=== PATIENT | male | born 1950 | race Caucasian/White ===

== ENCOUNTER 2017-06-04 09:23 | Outpatient (CLI) | payer OTHER | END 2017-06-04 09:24 | disposition home or self-care (01) | LOC: DTY/OP 09:23 | PROVIDERS: ATTEND Specialist | DX: Z01.818 Encounter for other preprocedural examination (principal); E66.01 Morbid (severe) obesity due to excess calories | CPT/HCPCS: 97802 ==

== ENCOUNTER 2017-06-22 11:07 | Outpatient (CLI) | payer MEDICARE, OTHER | END 2017-06-22 11:08 | disposition home or self-care (01) | LOC: LABBT 11:07 | PROVIDERS: ATTEND Specialist | DX: Z01.818 Encounter for other preprocedural examination (principal); E66.01 Morbid (severe) obesity due to excess calories; Z68.41 Body mass index [BMI] 40.0-44.9, adult ==

== ENCOUNTER 2017-06-22 13:00 | Inpatient (IN) | payer MEDICARE, OTHER ==
[2017-06-22 11:54] VITALS: BMI 39.0
[2017-06-26] MEDS ORDERED: Heparin 5,000 UNITS/ML VIAL ONE (06:14)
[2017-06-26] MEDS ORDERED: Scopolamine 1.5 mg/72 hour Patch ONE (06:14)
[2017-06-26] MEDS ORDERED: Ketorolac Tromethamine 30 MG/ML VIAL ONE ×2 (06:14→12:34)
[2017-06-26] MEDS ORDERED: cefOXitin 2 GM, Syringe 1 ML in Sterile Water 10 ML SLOW IVP SCH (06:30)
[2017-06-26] MEDS ORDERED: Fentanyl 250 MCG/5 ML VIAL ONE ×2 (06:51→12:32)
[2017-06-26] MEDS ORDERED: Bupivacaine/Epinephrine 0.25% 30 ML VIAL ONE (06:55)
[2017-06-26] MEDS ORDERED: Nitroglycerin 2% Ointment 1 INCH/1 GM Packet ONE (09:11)
[2017-06-26] MEDS ORDERED: Ondansetron HCl/PF 4 MG/2 ML Vial IVP PRN ×2 (10:29→13:08)
[2017-06-26] MEDS ORDERED: Promethazine HCl 25 MG/ML VIAL IM PRN ×2 (10:29→13:08)
[2017-06-26] MEDS ORDERED: Promethazine HCl 25 MG/ML VIAL SLOW IVP PRN (10:29)
[2017-06-26] MEDS ORDERED: Dextrose 50% Abboject 50 ML SYRINGE SLOW IVP PRN (13:08)
[2017-06-26] MEDS ORDERED: Insulin Regular 300 UNITS/3 ML VIAL SC PRN (13:08)
[2017-06-26] MEDS ORDERED: hydrALAZINE 20 MG/ML VIAL SLOW IVP PRN (13:08)
[2017-06-26] MEDS ORDERED: diphenhydrAMINE 50 MG/ML VIAL IVP PRN (13:08)
[2017-06-26] MEDS ORDERED: Hydrocodone-Acetamin 15 ML UDCUP PO PRN (13:08)
[2017-06-26] MEDS ORDERED: Morphine 4 MG/ML VIAL SLOW IVP PRN ×2 (13:08)
[2017-06-26] MEDS ORDERED: Dextrose 5% in Water 1,000 ML IV PRN (13:08)
[2017-06-26] MEDS ORDERED: (Canagliflozin [Invokana] 300 MG) PO SCH (13:08)
[2017-06-26] MEDS ORDERED: INSULIN GLARGINE HUM REC ANLOG 20 UNIT SC SCH (13:08)
[2017-06-26] MEDS ORDERED: Insulin Detemir 100 UNITS/ML 20 UNITS in Pre-Filled Syringe SC SCH (13:30)
[2017-06-26] MEDS ORDERED: Bupropion 150 MG XL TAB PO SCH (13:30)
[2017-06-26] MEDS ORDERED: Finasteride 5 MG TAB PO SCH (13:30)
[2017-06-26] MEDS ORDERED: glipiZIDE 5 MG TAB PO SCH (13:30)
[2017-06-26] MEDS ORDERED: Pantoprazole 40 MG VIAL IVP SCH (13:30)
[2017-06-26] MEDS: 1/2 NS w/KCL 20 mEq 1,000 ML IV SCH ×2 (14:00→23:49)
[2017-06-26] MEDS ORDERED: Glycopyrrolate 0.2 MG/ML 5 ML SYRINGE ONE (14:34)
[2017-06-26] MEDS ORDERED: Ondansetron HCl/PF 4 MG/2 ML Vial ONE (14:34)
[2017-06-26] MEDS ORDERED: Lidocaine 1% PF 5 ML VIAL ONE (14:34)
[2017-06-26] MEDS ORDERED: ePHEDrine/0.9% NaCl/PF SYRINGE 50 mg/10 ml ONE (14:34)
[2017-06-26] MEDS ORDERED: Propofol 200 MG/20 ML VIAL ONE (14:34)
[2017-06-26] MEDS ORDERED: Dexamethasone 20 MG/5 ML VIAL ONE (14:34)
[2017-06-26] MEDS: Ketorolac Tromethamine 30 MG/ML VIAL IVP SCH ×2 (17:48→23:49)
[2017-06-26] MEDS: Bupropion 150 MG XL TAB PO SCH (20:30)
[2017-06-26] MEDS: glipiZIDE 5 MG TAB PO SCH (20:31)
[2017-06-26] MEDS ORDERED: Enoxaparin Sodium 40 MG/0.4 ML SYRINGE SC SCH (21:00)
[2017-06-26] MEDS ORDERED: Amlodipine 10 MG TAB PO SCH (21:00)
[2017-06-26] MEDS ORDERED: Simvastatin 40 MG TAB PO SCH (21:00)
[2017-06-27 05:32] LABS: #Lymphocytes 0.6 thou/uL (1.20-3.40); #Monocytes 0.8 thou/uL (0.11-0.59); #Neutrophils 10.6 thou/uL (1.40-6.50); %Basophils 0.1 % (0.0-1.0); %Eosinophils 0.2 % (0.0-10.0); %Lymphocytes 4.8 % (21.0-51.0); %Monocytes 6.9 % (0.0-10.0); %Neutrophils 88.1 % (42.0-75.0); Hemoglobin 16.1 g/dL (14.0-18.0); Mean Corpuscular Hemoglobin 30.4 pg (27.0-31.0); Mean Corpuscular Volume 94.8 fl (80.0-94.0); Mean Platelet Volume 8.1 fL (7.4-10.4); Platelet Count 125 thou/uL (130-400); RBC Distribution Width 14.3 % (11.5-14.5); White Blood Cell (WBC) Count 12.1 thou/uL (4.8-10.8)
[2017-06-27 05:39] LABS: Anion Gap 11 mmol/L (10-20); BUN (Urea Nitrogen) 25 mg/dL (8.4-25.7); Calc. Creatinine Clearance 93 mL/min (70-130); Calcium 8.8 mg/dL (7.8-10.44); Carbon Dioxide 27 mmol/L (23-31); Chloride 106 mmol/L (98-107); Estimated GFR-MDRD 46; Glucose 129 mg/dL (80-115); Potassium 4.5 mmol/L (3.5-5.1); Sodium 139 mmol/L (136-145)
[2017-06-27] MEDS: Ketorolac Tromethamine 30 MG/ML VIAL IVP SCH (05:39)
[2017-06-27] MEDS: 1/2 NS w/KCL 20 mEq 1,000 ML IV SCH (06:49)
[2017-06-27] MEDS ORDERED: HumaLOG 300 UNITS/3 ML VIAL SC SCH (07:30)
[2017-06-27] MEDS: Bupropion 150 MG XL TAB PO SCH (08:47)
[2017-06-27] MEDS: glipiZIDE 5 MG TAB PO SCH (08:47)
[2017-06-27] MEDS ORDERED: Finasteride 5 MG TAB PO SCH (09:00)
[2017-06-27] MEDS ORDERED: Pantoprazole 40 MG VIAL IVP SCH (09:00)
[2017-06-27] MEDS ORDERED: Insulin Detemir 100 UNITS/ML 20 UNITS in Pre-Filled Syringe SC SCH (09:00)
[2017-06-27 11:54] VITALS: BP 150/77; TEMP 97.7
--- NOTE | 2017-06-28 13:12 | OP ---
DATE OF PROCEDURE: 06/26/2017 PREOPERATIVE DIAGNOSIS: Morbid obesity with multiple comorbidities. POSTOPERATIVE DIAGNOSIS: Morbid obesity with multiple comorbidities. PROCEDURE PERFORMED: Laparoscopic vertical sleeve gastrectomy. SURGEON: Thaddeus Mann M.D. ANESTHESIA: General endotracheal. INDICATIONS: The patient is a 67-year-old morbidly obese white male with multiple obesity associated comorbidities. He has undergone preoperative education and evaluation and presents at this time for his surgery. OPERATIVE PROCEDURE IN DETAIL: Informed consent was obtained. The patient was taken to the operatin g room where general endotracheal anesthesia was obtained with the patient in supine position. Abdom en was clipped of hair, prepped with ChloraPrep, and draped in sterile fashion. Local anesthetic was infiltrated using 0.25% Marcaine with epinephrine and a 5 mm supraumbilical incision was created thr ough which a Veress needle was passed into the peritoneal cavity and pneumoperitoneum established usi ng carbon dioxide up to a pressure of 15 mmHg. A 5 mm trocar port was passed through this same incis ion. Laparoscopic camera was passed through this port. Under direct vision, 4 additional laparoscop ic ports were placed including bilateral subcostal 5 mm ports, a right paramedian 12 mm port, and a l eft paramedian 15 mm port. A 5 mm epigastric incision was created through which Nathansen retractor was passed into the abdominal cavity and used to retract the left lobe of the liver. The pylorus was identified. Beginning 5 cm proximal to the pylorus, the omental and vascular tissue was dissected a way from the greater curvature of the stomach in an ascending fashion using the LigaSure device. Hem ostasis was maintained. The short gastric vessels were divided in a similar fashion. Posterior delia lanie adhesions were divided as well. The angle of His was mobilized and the left cass of the diaphrag m was dissected as well. Once complete gastric mobilization was obtained, a 36 Vincentian bougie was pas sed by Anesthesia through the stomach down to the level of the pylorus. This was used as a guide for the subsequent gastrectomy. The gastrectomy was performed using several firings of the Nye stap ler, initially using a green load followed by a gold load and a series of blue loads to complete the resection. Great care was taken to avoid narrowing of the incisura or the gastroesophageal junction. Once the stomach was completely transected, the excised portion was removed through the 15 mm port site. The fascia was closed at that location using a [id number] suture of 0 Vicryl using a GraN ee needle. From above, an esophagogastroduodenoscopy was performed, passing the scope through the sto mach to the level of the pylorus. There was no evidence of intraluminal bleeding or stricture format ion. There was no air leak along the staple line as it was inspected under water. The intraluminal air was removed and the scope was removed as well. The staple line was inspected for hemostasis. Hemostasis obtained using electrocautery and/or Hemocl ips as necessary. All irrigant from within the abdomen was aspirated. The Nathansen retractor and a ll ports were removed under direct vision. Pneumoperitoneum was carefully evacuated. Quarter percen t Marcaine with epinephrine was infiltrated in each port site and skin edges approximated with 4-0 Mo nocryl subcuticular suture. Dermabond was placed externally. There were no complications. The milo ent tolerated the procedure well and was taken to recovery room in stable condition. FINDINGS: The patient still had significant evidence of fatty liver disease. There was, however amp le room to perform the surgery in a safe fashion. Anatomy was essentially within normal limits. The re were no complications and no significant blood loss. Patient tolerated the procedure well and was taken to recovery room in stable condition.
== END 2017-06-27 13:03 | disposition home or self-care (01) | DRG 621 ==
LOC: SURG A 06-26 05:48
PROVIDERS: ADMIT Specialist; ATTEND Specialist
PROC: 0DB64Z3 Excision of Stomach, Percutaneous Endoscopic Approach, Vertical (ICD-10-PCS; principal; 2017-06-26)
DX: E66.01 Morbid (severe) obesity due to excess calories (principal); K76.0 Fatty (change of) liver, not elsewhere classified; E11.9 Type 2 diabetes mellitus without complications; Z68.39 Body mass index [BMI] 39.0-39.9, adult; G47.33 Obstructive sleep apnea (adult) (pediatric); K21.9 Gastro-esophageal reflux disease without esophagitis; I10 Essential (primary) hypertension; E78.5 Hyperlipidemia, unspecified; Z88.5 Allergy status to narcotic agent; Z79.82 Long term (current) use of aspirin; Z79.4 Long term (current) use of insulin
CPT/HCPCS: 36415; 36416; 80048; 85025; 88307; 88312; A4216; C9113; J0131; J0171; J0694; J1100; J1644; J1650; J1815; J1885; J2001; J2405; J2704; J3010

== ENCOUNTER 2018-04-13 16:27 | Inpatient (IN) | payer MEDICARE, OTHER ==
--- NOTE | 2018-04-13 16:48 | RAD ---
CHEST ONE VIEW 04/13/18 HISTORY: Chest pain. COMPARISON: Radiograph from [address] from 07/18/16. FINDINGS: Lungs are clear. No pneumothorax or effusion. Cardiac silhouette and mediastinal contours are within normal limits. IMPRESSION: No acute intrathoracic abnormality. POS: [facility]
[2018-04-13 17:32] LABS: #Eosinphils 0.1 thou/uL (0.0-0.7); #Lymphocytes 0.7 thou/uL (1.20-3.40); #Monocytes 0.4 thou/uL (0.11-0.59); #Neutrophils 6.2 thou/uL (1.40-6.50); %Basophils 0.5 % (0.0-1.0); %Eosinophils 0.9 % (0.0-10.0); %Lymphocytes 9.6 % (21.0-51.0); %Monocytes 5.2 % (0.0-10.0); %Neutrophils 83.9 % (42.0-75.0); Hemoglobin 15.1 g/dL (14.0-18.0); Mean Corpuscular HGB CONC 34.2 g/dL (32.0-36.0); Mean Corpuscular Hemoglobin 32.6 pg (27.0-31.0); Mean Corpuscular Volume 95.3 fL (78.0-98.0); Mean Platelet Volume 8.6 fL (7.4-10.4); Platelet Count 131 thou/uL (130-400); RBC Distribution Width 11.8 % (11.5-14.5); Red Blood Cell (RBC) Count 4.64 mill/uL (4.70-6.10); White Blood Cell (WBC) Count 7.4 thou/uL (4.8-10.8)
[2018-04-13 17:55] LABS: ALT (SGPT) 28 U/L (8-55); AST (SGOT) 21 U/L (5-34); Albumin 4.4 g/dL (3.4-4.8); Alkaline Phosphatase 71 U/L (40-150); Anion Gap 14 mmol/L (10-20); BUN (Urea Nitrogen) 21 mg/dL (8.4-25.7); Bilirubin, Total 0.6 mg/dL (0.2-1.2); CK (CPK) 129 U/L (30-200); Calc. Creatinine Clearance 0 mL/min (70-130); Calcium 9.9 mg/dL (7.8-10.44); Carbon Dioxide 27 mmol/L (23-31); Chloride 105 mmol/L (98-107); Estimated GFR-MDRD 44; Globulin 2.7 g/dL (2.4-3.5); Glucose 185 mg/dL (80-115); Lipase 38 U/L (8-78); Potassium 4.4 mmol/L (3.5-5.1); Protein, Total 7.1 g/dL (5.8-8.1); Sodium 142 mmol/L (136-145)
[2018-04-13 18:15] LABS: CKMB 5.1 ng/mL (0-6.6)
[2018-04-13 20:48] LABS: Troponin I 0.643 ng/mL (< 0.028)
[2018-04-13] MEDS ORDERED: Aspirin 325 MG TAB ONE (21:21)
[2018-04-13] MEDS ORDERED: Nitroglycerin 2% Ointment 1 INCH/1 GM Packet ONE (21:26)
[2018-04-13] MEDS ORDERED: Enoxaparin Sodium 30 MG/0.3 ML SYRINGE ONE (22:33)
[2018-04-13] MEDS ORDERED: Enoxaparin Sodium 80 MG/0.8 ML SYRINGE ONE (22:33)
[2018-04-14 00:02] LABS: Troponin I 1.686 ng/mL (< 0.028)
[2018-04-14 00:26] VITALS: BMI 30.4
[2018-04-14] MEDS ORDERED: cloNIDine 0.1 MG TAB PO SCH (01:15)
[2018-04-14] MEDS ORDERED: Amlodipine 10 MG TAB PO SCH ×2 (01:15→21:00)
[2018-04-14] MEDS ORDERED: buPROPion 75 MG TAB PO SCH (01:15)
[2018-04-14] MEDS ORDERED: Famotidine 20 MG TAB PO SCH (01:15)
[2018-04-14] MEDS ORDERED: Atorvastatin Calcium 20 MG TAB PO SCH (01:15)
[2018-04-14] MEDS ORDERED: Acetaminophen 325 MG TAB PO PRN (02:58)
[2018-04-14] MEDS ORDERED: Prevnar 13-Val Conj/PF 0.5 ML SYRINGE IM ONE (09:00)
[2018-04-14] MEDS: Enoxaparin Sodium 120 MG/0.8 ML SYRINGE SC SCH ×2 (09:25→20:43)
[2018-04-14] MEDS: buPROPion 75 MG TAB PO SCH ×2 (09:27→20:42)
[2018-04-14 10:37] LABS: Troponin I 1.448 ng/mL (< 0.028)
[2018-04-14] MEDS ORDERED: Dextrose 50% Abboject 50 ML SYRINGE SLOW IVP PRN (11:48)
[2018-04-14] MEDS ORDERED: Insulin Regular 300 UNITS/3 ML VIAL SC PRN (11:48)
[2018-04-14] MEDS ORDERED: Dextrose 5% in Water 1,000 ML IV PRN (11:48)
--- NOTE | 2018-04-14 17:58 | HP ---
HISTORY OF PRESENT ILLNESS: This is a 67-year-old white male with a history of coronary artery disease, hypertension, status post gastric sleeve, who presents with chest pain. The patient did receive a cardiac catheterization on April 2015 and received 3 stents. On June 26, 2017, he underwent a gastric sleeve and since he has lost 80 pounds. He was doing well until yesterday on day of admission, and at approximately 2:00 p.m., he developed acute onset of epigastric pain radiating to the right shoulder blade. This occurred 20 minutes after eating pizza. Since then, his chest pain has resolved and he has been pain free. No history of nausea, vomiting, fever, or diaphoresis. This morning, he complains of being hungry and is pain free. In the ER, troponin levels were noted to be elevated. PAST MEDICAL HISTORY: Diabetes, hypertension, hyperlipidemia, kidney stones, and sleep apnea. PAST SURGICAL HISTORY: Include colonoscopy in 2011, cardiac cath with stent placement x3 in April 2015, and gastric sleeve on June 26, 2017. FAMILY HISTORY: Father with COPD. Mother with diabetes. Sibling with lung cancer. Maternal grandmother with some unknown cancer. Paternal uncle with diabetes. The patient does have 2 kids, 40 and 37. SOCIAL HISTORY: He is . He has 1 son, 1 daughter, 2 grand kids. He is retired from [employer] and is quite active. MEDICATIONS: 1. Metoprolol 50 daily. 2. Simvastatin 40 daily. 3. Zantac 300 at bedtime. 4. Vitamin D daily. 5. Testosterone every week. 6. Aspirin 81 daily. 7. Finasteride 5 daily. 8. Fish oil daily. 9. Metformin 500 daily. 10. Losartan, which is on hold. 11. Bupropion 150 p.o. b.i.d. REVIEW OF SYSTEMS: As above. ALLERGIES: CODEINE. PHYSICAL EXAMINATION: VITAL SIGNS: Temperature 97.5, pulse 43, respirations 20, pulse ox 99%, and blood pressure 153/75. GENERAL: No acute distress at this time. HEENT: Clear. NECK: Supple. HEART: Regular rate and rhythm. LUNGS: Clear. ABDOMEN: Soft, nontender. EXTREMITIES: No edema. LABORATORY DATA: White count 10.4, hemoglobin and hematocrit 15 and 44. Electrolytes are normal. Creatinine 1.58, blood sugar 185. Troponin-I 0.153, 0.643, 1.686, 1.448. Liver function tests are normal. ASSESSMENT: 1. Chest pain, rule out myocardial infarction. 2. Epigastric pain with radiation to the shoulder blade, rule out cholecystitis. 3. Status post gastric sleeve with an 80-pound weight loss on June 26, [address] Mann. PLAN: 1. Consult Dr. Wesley. 2. Abdominal ultrasound, rule out cholecystitis. 3. N.p.o. for now. If the ultrasound comes back positive, we will consult Dr. Mann. I doubt this is cardiac, however, it is possible. He does have a history of 3 stents placed recently. Job ID: [id number]
[2018-04-14] MEDS: Atorvastatin Calcium 20 MG TAB PO SCH (20:42)
[2018-04-14] MEDS: Famotidine 20 MG TAB PO SCH (20:43)
--- NOTE | 2018-04-15 00:44 | CON ---
DATE OF CONSULTATION: 04/14/2018 TYPE OF CONSULTATION: Cardiology. INDICATION FOR CONSULTATION: A 67-year-old patient with a history of coronary artery disease, status post angioplasty and stent placement to the left anterior descending artery. He presented with chest pain with unstable angina-type symptoms. When he arrived to the emergency room, he was given nitroglycerin and had relief of his pain. He has had no pain since that time. He did have abnormal cardiac enzymes. The first troponin was 0.153 and increased up to 1.68 and is back down to 1.448. He has had no further chest pain since he has been in the hospital. His EKG was unremarkable. MB was 5.1. In April of 2015, he underwent angioplasty and stent placement with drug-eluting stents to the left anterior descending artery with a 2.75 x 24 mm and 2.75 x 12 mm and 2.5 x 16 mm, all to the left anterior descending artery, which was a small vessel. Ejection fraction at that time was 60%. He also had some luminal irregularities of the right coronary artery. He had a codominant system of the right coronary and left circumflex and he had a 70% stenosis in the posterior descending artery. In the interim, he has undergone a gastric sleeve procedure, and lost about 80 pounds and feels much better. He has been active, but then started developing chest pain yesterday when he was getting ready to start a project. The pain started in the chest, was heavy, pressure radiating to the back and with diaphoresis lasted for about 3 hours in total until he received the nitroglycerin in the emergency room. PAST MEDICAL HISTORY: Significant for: 1. Type 2 diabetes. 2. Hypertension. 3. Dyslipidemia. 4. History of nephrolithiasis. 5. History of coronary artery disease. 6. Angioplasty and stent placement. 7. Lithotripsy. 8. He has had a colonoscopy. MEDICATIONS PRIOR TO ADMISSION: Included: 1. Simvastatin. 2. Testosterone. 3. Losartan/hydrochlorothiazide. 4. Aspirin 81 mg a day. 5. Finasteride 5 mg a day. 6. Zantac. 7. Amlodipine 10 mg a day. 8. Wellbutrin. 9. Metoprolol 50 mg a day. 10. Calcium carbonate antacid. 11. Also he was taking econazole nitrate. Prior to that, he had been on medicines for his diabetes, but since he has lost weight, he no longer required the medications for the diabetes. SOCIAL HISTORY: He lives with his . He continues to work. No significant alcohol or tobacco abuse. ALLERGIES: HE IS ALLERGIC TO CODEINE, WHICH CAUSES HALLUCINATIONS. FAMILY HISTORY: Unremarkable for any early heart disease. He did have one brother who had lung cancer and he also had a history of COPD in the family with his father. REVIEW OF SYSTEMS: A 12-point review of systems is unremarkable except what is noted in the history of present illness. PHYSICAL EXAMINATION: GENERAL: Reveals a very pleasant, well-developed, well-nourished gentleman, who is in no acute distress. He is alert and oriented x3. VITAL SIGNS: Blood pressure is 153/74, then increased up to 176/84, heart rates in the 40s and shows sinus bradycardia. He is afebrile. Respiratory rate is 20, O2 saturation 99%. HEENT: Shows the head to be normocephalic and atraumatic. Carotid pulses are present. There were no bruits. There is no JVD. The thyroid was not enlarged. Oral mucosa was pink and moist. CHEST: Clear to auscultation without rales, rhonchi, or wheezing. CARDIOVASCULAR: At this time reveals a regular rhythm. Bradycardic, but no significant murmurs, heaves, thrills, bruits, or rubs. ABDOMEN: Soft and nontender. Positive bowel sounds are present. EXTREMITIES: Showed no clubbing or cyanosis. Pedal pulses are present. NEUROLOGIC: The patient appears to be fully intact. SKIN: His skin is warm and dry. LABORATORY DATA: Noted for the troponin as noted above. His hemoglobin is 15.1, WBC is 7.4, creatinine is 1.58 with a BUN of 21, blood sugar was 185. IMPRESSION AND PLAN: 1. [id number] elevation myocardial infarction. The patient with known coronary artery disease. He would best be served by undergoing a repeat cardiac catheterization. We will arrange for this for tomorrow morning for Dr. Diaz to proceed with cardiac catheterization at his convenience. 2. History of diabetes. He had not been taking any medications after losing the weight, but I did notice that his blood sugars were somewhat elevated, I will leave this up to the discretion of the primary care physician. 3. History of hyperlipidemia. He will continue his present medications or his statins. 4. Hypertension. Blood pressure is somewhat elevated today. However, he says at home, his blood pressures have been under good control. We will be more than happy to continue to follow the patient with you and Dr. Diaz will resume his care tomorrow. Job ID: [id number]
[2018-04-15] MEDS: Enoxaparin Sodium 120 MG/0.8 ML SYRINGE SC SCH (07:40)
[2018-04-15 08:02] LABS: Anion Gap 13 mmol/L (10-20); BUN (Urea Nitrogen) 17 mg/dL (8.4-25.7); Calc. Creatinine Clearance 91 mL/min (70-130); Carbon Dioxide 24 mmol/L (23-31); Chloride 107 mmol/L (98-107); Estimated GFR-MDRD 60; Glucose 105 mg/dL (80-115); Potassium 3.7 mmol/L (3.5-5.1); Sodium 140 mmol/L (136-145)
--- NOTE | 2018-04-15 09:42 | ULT ---
RIGHT UPPER QUADRANT ULTRASOUND: Indication: History of epigastric abdominal pain. FINDINGS: No focal hepatic lesion is evident. The gallbladder is normal in appearance. No sonographic Joel's sign was reported. Common bile duct measured 4.5 mm. Pancreas was obscured by overlying bowel gas. Th e right kidney measured 11.5 cm in length. No hydronephrosis is seen. IMPRESSION: No acute sonographic abnormality within the right upper quadrant. POS: [facility]
--- NOTE | 2018-04-15 10:15 | PRG ---
DATE OF SERVICE: 04/15/2018 SUBJECTIVE: No complaints of any recurrent chest pain, shortness of breath, nausea, or vomiting. OBJECTIVE: VITAL SIGNS: Temperature 97.9, pulse 47, respirations 18, O2 saturation 99, and blood pressure 148/72. HEART: Regular rate and rhythm. LUNGS: Clear. ABDOMEN: Soft and nontender. LABORATORY DATA: Blood sugar 116, 192, 90. ASSESSMENT: 1. Chest pain, rule out myocardial infarction. 2. Coronary artery disease status post stent placement in 2015. 3. Epigastric pain with radiation to right shoulder. 4. Status post gastric sleeve. 5. Diabetes. 6. Hypertension. 7. Hyperlipidemia. 8. Sleep apnea. PLAN: 1. Cardiac catheterization scheduled for 11 a.m. this morning. 2. Abdominal ultrasound, rule out gallbladder disease. 3. N.P.O. Job ID: [id number]
[2018-04-15] MEDS: buPROPion 75 MG TAB PO SCH ×2 (10:36→21:19)
[2018-04-15] MEDS ORDERED: Nitroglycerin 100MG/250ML BOT 250 ML ONE (11:31)
[2018-04-15] MEDS ORDERED: Verapamil 5 MG/2 ML VIAL ONE (11:31)
[2018-04-15] MEDS ORDERED: Heparin 10,000 UNITS/1 ML VIAL ONE (11:31)
[2018-04-15] MEDS ORDERED: Midazolam HCl 2 mg/2 ml Vial ONE (11:33)
[2018-04-15] MEDS ORDERED: Fentanyl 100 MCG/2 ML VIAL ONE (11:33)
[2018-04-15] MEDS ORDERED: TICAGRELOR 90 MG TABLET ONE (12:12)
[2018-04-15] MEDS ORDERED: hydrALAZINE 20 MG/ML VIAL ONE (12:16)
[2018-04-15] MEDS ORDERED: Morphine 2 MG/ML SYRINGE SLOW IVP PRN (12:30)
[2018-04-15] MEDS ORDERED: Nitroglycerin 0.4 MG TAB (25 Tab Bottle) SL PRN (12:30)
[2018-04-15] MEDS ORDERED: Sodium Chloride 0.9% 1,000 ML IV SCH (12:45)
[2018-04-15] MEDS ORDERED: Carvedilol 3.125 MG TAB PO SCH (17:00)
--- NOTE | 2018-04-15 17:24 | EKG ---
Test Reason : POST PTCA/STENT Blood Pressure : / mmHG Vent. Rate : 061 BPM Atrial Rate : 061 BPM P-R Int : 180 ms QRS Dur : 110 ms QT Int : 460 ms P-R-T Axes : 034 -47 053 degrees QTc Int : 463 ms Normal sinus rhythm Left anterior fascicular block Minimal voltage criteria for LVH, may be normal variant Abnormal ECG When compared with ECG of 06-MAY-2015 09:25, Nonspecific T wave abnormality has replaced inverted T waves in Lateral leads Confirmed by DR. Cristhian KIRK ([id number]) on 04/15/2018 5:23:56 PM Referred By: TAMERA Confirmed By:DR. Cristhian KIRK
[2018-04-15] MEDS ORDERED: TICAGRELOR 90 MG TABLET PO SCH (21:00)
[2018-04-15] MEDS ORDERED: Metoprolol Tartrate 50 MG TAB PO SCH (21:00)
[2018-04-15] MEDS: Famotidine 20 MG TAB PO SCH (21:18)
[2018-04-15] MEDS: Atorvastatin Calcium 20 MG TAB PO SCH (21:19)
[2018-04-16 07:22] LABS: ALT (SGPT) 16 U/L (8-55); AST (SGOT) 12 U/L (5-34); Albumin 3.6 g/dL (3.4-4.8); Alkaline Phosphatase 58 U/L (40-150); Anion Gap 11 mmol/L (10-20); BUN (Urea Nitrogen) 15 mg/dL (8.4-25.7); Bilirubin, Total 0.6 mg/dL (0.2-1.2); Calc. Creatinine Clearance 86 mL/min (70-130); Carbon Dioxide 27 mmol/L (23-31); Chloride 107 mmol/L (98-107); Estimated GFR-MDRD 56; Globulin 2.2 g/dL (2.4-3.5); Glucose 99 mg/dL (80-115); Potassium 3.7 mmol/L (3.5-5.1); Protein, Total 5.8 g/dL (5.8-8.1); Sodium 141 mmol/L (136-145)
[2018-04-16 07:36] LABS: #Lymphocytes 0.9 thou/uL (1.20-3.40); #Monocytes 0.5 thou/uL (0.11-0.59); #Neutrophils 3.1 thou/uL (1.40-6.50); %Basophils 0.3 % (0.0-1.0); %Lymphocytes 18.9 % (21.0-51.0); %Monocytes 11.1 % (0.0-10.0); %Neutrophils 68.6 % (42.0-75.0); Hemoglobin 13.4 g/dL (14.0-18.0); Mean Corpuscular HGB CONC 33.6 g/dL (32.0-36.0); Mean Corpuscular Hemoglobin 31.8 pg (27.0-31.0); Mean Corpuscular Volume 94.7 fL (78.0-98.0); Mean Platelet Volume 8.5 fL (7.4-10.4); PLT Morphology Comment Appears Decreased; Platelet Count 119 thou/uL (130-400); RBC Distribution Width 11.7 % (11.5-14.5); RBC Morphology Normal; Red Blood Cell (RBC) Count 4.22 mill/uL (4.70-6.10); White Blood Cell (WBC) Count 4.5 thou/uL (4.8-10.8)
[2018-04-16 07:39] VITALS: TEMP 97.9
[2018-04-16] MEDS: buPROPion 75 MG TAB PO SCH (08:35)
[2018-04-16] MEDS ORDERED: Clopidogrel Bisulfate 75 MG TAB PO SCH (09:00)
[2018-04-16] MEDS ORDERED: Lisinopril 5 MG TAB PO SCH (09:00)
[2018-04-16 13:11] VITALS: BP 149/79
--- NOTE | 2018-04-16 16:12 | EKG ---
Test Reason : Blood Pressure : / mmHG Vent. Rate : 050 BPM Atrial Rate : 050 BPM P-R Int : 188 ms QRS Dur : 114 ms QT Int : 502 ms P-R-T Axes : 036 -44 039 degrees QTc Int : 457 ms Sinus bradycardia Left axis deviation Voltage criteria for left ventricular hypertrophy Abnormal ECG When compared with ECG of 15-APR-2018 14:21, No significant change was found Confirmed by DR. Cristhian KIRK ([id number]) on 04/16/2018 4:12:17 PM Referred By: TAMERA Confirmed By:DR. Cristhian KIRK
--- NOTE | 2018-04-16 17:11 | DIS ---
DATE OF ADMISSION: 04/13/2018 DATE OF DISCHARGE: 04/16/2018 DISCHARGE DIAGNOSES: 1. Chest pain. 2. Non-ST segment elevation myocardial infarction. 3. Coronary artery disease status post stent placement x1. 4. Abdominal pain. 5. Status post gastric sleeve. 6. Diabetes. 7. Hypertension. 8. Hyperlipidemia. 9. Sleep apnea. DISCHARGE MEDICATIONS: Prescription; 1. Testosterone weekly. 2. Simvastatin 40 daily. 3. Ranitidine 300 daily. 4. Metoprolol 50 p.o. at bedtime. 5. Losartan-hydrochlorothiazide 50-12.5 p.o. q.a.m. 6. Finasteride 5 daily. 7. Bupropion SR 100 p.o. b.i.d. 8. Calcium daily. 9. Aspirin 81 daily. 10. Norvasc 10 mg p.o. q.p.m. FOLLOWUP: Follow up Dr. Lizandro Bill, in [address] Diaz. BRIEF HISTORY: This is a 67-year-old white male with coronary artery disease, presented with chest pain. He received a cardiac cath in April 2015 and received 3 stents. In June of 2017, he underwent a gastric sleeve and has lost 80 pounds. He is doing well until the day of admission. He developed epigastric/chest pain shortly after eating pizza. The chest pain resolved. He was brought to the emergency room for further evaluation. HOSPITAL COURSE: Cardiology was consulted. Dr. Diaz performed a heart catheterization, which revealed a 90% lesion of the LAD and a stent was placed. He also performed angioplasty on another vessel. The patient has remained chest pain free in his entire hospital stay. He is ready for discharge at this time. His blood pressure was 139/70. He will be followed up in office in the next week. Job ID: [id number]
== END 2018-04-16 10:20 | disposition home or self-care (01) | DRG 247 ==
LOC: ERS 16:27 → IMCU/EMU 22:13
PROVIDERS: ADMIT Family Medicine; ATTEND Family Medicine
PROC: 4A023N7 Measurement of Cardiac Sampling and Pressure, Left Heart, Percutaneous Approach (ICD-10-PCS; principal; 2018-04-13)
PROC: 027034Z Dilation of Coronary Artery, One Artery with Drug-eluting Intraluminal Device, Percutaneous Approach (ICD-10-PCS; 2018-04-13)
PROC: B2111ZZ Fluoroscopy of Multiple Coronary Arteries using Low Osmolar Contrast (ICD-10-PCS; 2018-04-13)
PROC: B2151ZZ Fluoroscopy of Left Heart using Low Osmolar Contrast (ICD-10-PCS; 2018-04-13)
DX: I21.4 Non-ST elevation (NSTEMI) myocardial infarction (principal); N17.9 Acute kidney failure, unspecified; I25.10 Atherosclerotic heart disease of native coronary artery without angina pectoris; E78.5 Hyperlipidemia, unspecified; G47.30 Sleep apnea, unspecified; I25.2 Old myocardial infarction; N18.9 Chronic kidney disease, unspecified; I12.9 Hypertensive chronic kidney disease with stage 1 through stage 4 chronic kidney disease, or unspecified chronic kidney disease; E11.22 Type 2 diabetes mellitus with diabetic chronic kidney disease
CPT/HCPCS: 36415; 36416; 71045; 76705; 80048; 80053; 82550; 82553; 83690; 84484; 85025; 85347; 92928; 93005; 93010; 93458; 93798; 96372; 99152; 99153; C1769; C1874; C9600; J0360; J1644; J1650; J2250; J3010

== ENCOUNTER 2019-09-23 10:24 | Outpatient (CLI) | payer MEDICARE, OTHER ==
--- NOTE | 2019-09-23 11:04 | RAD ---
XR Hip Rt 2-3 View HISTORY: Right hip pain COMPARISON: None. FINDINGS: Mild degenerative changes are present. No fracture, dislocation or bony destruction is iden tified.
== END 2019-09-23 10:25 | disposition home or self-care (01) ==
LOC: RAD 10:24
PROVIDERS: ATTEND Family Medicine
DX: M25.551 Pain in right hip (principal)
CPT/HCPCS: 36415; 80053; 80061; 83036; 84443; 85025

== ENCOUNTER 2022-07-20 13:35 | Outpatient (CLI) | payer MEDICARE, OTHER | END 2022-07-20 13:36 | disposition home or self-care (01) | LOC: BICRAD 13:35 | PROVIDERS: ATTEND Family Medicine | DX: M25.551 Pain in right hip (principal); M16.11 Unilateral primary osteoarthritis, right hip ==

== ENCOUNTER 2024-03-06 08:27 | Inpatient (IN) | payer MEDICARE, OTHER ==
[2024-03-06] MEDS ORDERED: Aspirin Chewable 81 MG TAB ONE (12:35)
[2024-03-06] MEDS ORDERED: hydrALAZINE 20 MG/ML VIAL ONE (13:04)
[2024-03-06] MEDS ORDERED: Potassium Chloride 20 MEQ TAB ONE (16:05)
[2024-03-06] MEDS ORDERED: Furosemide 20 MG (2 mL) VIAL ONE (16:05)
[2024-03-06] MEDS ORDERED: Insulin Regular, Human 100 UNIT/ML 10 ML VIAL SC PRN ×2 (22:30)
[2024-03-06] MEDS ORDERED: Glucagon 1 MG/ML KIT IM PRN (22:30)
[2024-03-06] MEDS ORDERED: Insulin Lispro 100 UNIT/ML 10 ML VIAL SC PRN ×2 (22:30)
[2024-03-06] MEDS ORDERED: Dextrose 50% Abboject 50 ML SYRINGE SLOW IVP PRN (22:30)
[2024-03-06] MEDS ORDERED: Dextrose 5% in Water 1,000 ML IV PRN (22:30)
[2024-03-06] MEDS ORDERED: Nitroglycerin 0.4 MG TAB (25 Tab Bottle) SL PRN (22:33)
[2024-03-06] MEDS ORDERED: Senokot S 8.6-50 MG TAB PO PRN (22:33)
[2024-03-06] MEDS ORDERED: Polyvinyl Alcohol 1.4%/Povidone 0.6% Opth Drops EA EYE PRN (22:34)
[2024-03-06 22:35] VITALS: BMI 30.7
[2024-03-06] MEDS ORDERED: Moisturizing Cream (Eucerin) 113 GM JAR TOP PRN (22:35)
[2024-03-06] MEDS: Insulin Glargine 30 UNITS/0.3 ML VIAL ONE (22:39)
[2024-03-06] MEDS: Sacubitril 24MG/Valsartan 26 MG TAB PO SCH (22:45)
[2024-03-06] MEDS: Insulin Glargine 30 UNITS/0.3 ML VIAL SC SCH (22:45)
[2024-03-07] MEDS ORDERED: Ondansetron ODT 4 MG TAB PO PRN (05:15)
[2024-03-07] MEDS ORDERED: Acetaminophen 325 MG TAB PO PRN (05:15)
[2024-03-07] MEDS ORDERED: Ondansetron PF 4 MG/2 ML Vial SLOW IVP PRN (05:15)
[2024-03-07] MEDS: Furosemide 20 MG (2 mL) VIAL SLOW IVP SCH ×2 (05:25→15:54)
[2024-03-07 10:56] LABS: ALT (SGPT) 20 U/L (8-55); AST (SGOT) 18 U/L (5-34); Albumin 3.3 g/dL (3.4-4.8); Alkaline Phosphatase 74 U/L (40-110); Anion Gap 15 mmol/L (10-20); BUN (Urea Nitrogen) 35 mg/dL (8.4-25.7); Bilirubin, Total 1.5 mg/dL (0.2-1.2); Calc. Creatinine Clearance 41 mL/min (70-130); Calcium 8.7 mg/dL (7.8-10.44); Carbon Dioxide 25 mmol/L (23-31); Chloride 103 mmol/L (98-107); Estimated GFR 27; Globulin 2.9 g/dL (2.4-3.5); Glucose 192 mg/dL (83-110); Potassium 3.3 mmol/L (3.5-5.1); Protein, Total 6.2 g/dL (5.8-8.1); Sodium 140 mmol/L (136-145)
[2024-03-07 10:57] LABS: Troponin I 0.188 ng/mL (< 0.028)
[2024-03-07 10:58] LABS: Lactic Acid 1.56 mmol/L (0.5-2.2)
[2024-03-07 14:18] LABS: Magnesium 2.3 mg/dL (1.6-2.6)
[2024-03-07 14:19] LABS: Troponin I 0.159 ng/mL (< 0.028)
[2024-03-07 14:20] LABS: #Basophils Less than 0.03 10x3/uL (0.0-0.2); #Eosinophils Less than 0.03 10x3/uL (0.0-0.7); %Basophils 0.3 % (0.0-1.0); %Monocytes 10.1 % (0.0-10.0); Hemoglobin 10.7 g/dL (14.0-18.0); Mean Corpuscular HGB CONC 31.5 g/dL (32.0-36.0); Mean Corpuscular Hemoglobin 30.1 pg (27.0-31.0); Mean Corpuscular Volume 95.5 fL (78.0-98.0); Mean Platelet Volume 10.9 fL (7.4-10.4); Platelet Count 140 10x3/uL (130-400); RBC Distribution Width 14.8 % (11.5-14.5); Red Blood Cell (RBC) Count 3.56 mill/uL (4.70-6.10)
[2024-03-07] MEDS: Amlodipine 5 MG TAB PO SCH (15:54)
[2024-03-07] MEDS: Potassium Chloride 10 MEQ TAB PO SCH (15:54)
[2024-03-07] MEDS: Aspirin Chewable 81 MG TAB PO SCH (15:54)
[2024-03-07] MEDS: Apixaban 5 MG TAB PO SCH (15:54)
[2024-03-07] MEDS: hydrALAZINE 20 MG/ML VIAL SLOW IVP SCH (15:54)
[2024-03-07] MEDS: Cefdinir 300 MG CAP PO SCH (15:55)
[2024-03-07] MEDS: Famotidine 20 MG TAB PO SCH (15:55)
[2024-03-07] MEDS: Sacubitril 24MG/Valsartan 26 MG TAB PO SCH (15:55)
[2024-03-07] MEDS: Bupropion 150 MG SR.TAB PO SCH (15:55)
[2024-03-07] MEDS: Famotidine/PF 20 mg/2ml Vial SLOW IVP SCH (15:55)
[2024-03-08] MEDS: Ipratropium/Albuterol 3 ML NEB NEB PRN (02:39)
[2024-03-08 05:31] LABS: #Basophils Less than 0.03 10x3/uL (0.0-0.2); #Eosinophils Less than 0.03 10x3/uL (0.0-0.7); %Basophils 0.3 % (0.0-1.0); %Eosinophils 0.6 % (0.0-10.0); %Lymphocytes 13.2 % (21.0-51.0); %Neutrophils 74.6 % (42.0-75.0); Hematocrit 32.4 % (42.0-52.0); Hemoglobin 10.3 g/dL (14.0-18.0); Mean Corpuscular HGB CONC 31.8 g/dL (32.0-36.0); Mean Corpuscular Hemoglobin 30.1 pg (27.0-31.0); Mean Corpuscular Volume 94.7 fL (78.0-98.0); Mean Platelet Volume 10.6 fL (7.4-10.4); Platelet Count 130 10x3/uL (130-400); RBC Distribution Width 14.6 % (11.5-14.5); Red Blood Cell (RBC) Count 3.42 mill/uL (4.70-6.10)
[2024-03-08 06:09] LABS: Anion Gap 14 mmol/L (10-20); BUN (Urea Nitrogen) 33 mg/dL (8.4-25.7); Calc. Creatinine Clearance 55 mL/min (70-130); Calcium 8.2 mg/dL (7.8-10.44); Carbon Dioxide 26 mmol/L (23-31); Chloride 104 mmol/L (98-107); Estimated GFR 38; Glucose 150 mg/dL (83-110); Potassium 2.5 mmol/L (3.5-5.1); Sodium 141 mmol/L (136-145)
[2024-03-08] MEDS: Potassium Chloride 20 MEQ TAB PO SCH ×2 (06:35→08:48)
[2024-03-08] MEDS: Famotidine/PF 20 mg/2ml Vial SLOW IVP SCH (08:28)
[2024-03-08] MEDS: Famotidine 20 MG TAB PO SCH (08:28)
[2024-03-08] MEDS: Finasteride 5 MG TAB PO SCH (08:28)
[2024-03-09 04:59] LABS: #Basophils Less than 0.03 10x3/uL (0.0-0.2); %Basophils 0.7 % (0.0-1.0); %Eosinophils 2.9 % (0.0-10.0); %Lymphocytes 17.3 % (21.0-51.0); %Neutrophils 63.8 % (42.0-75.0); Hematocrit 33.1 % (42.0-52.0); Hemoglobin 10.5 g/dL (14.0-18.0); Mean Corpuscular HGB CONC 31.7 g/dL (32.0-36.0); Mean Corpuscular Hemoglobin 29.2 pg (27.0-31.0); Mean Corpuscular Volume 91.9 fL (78.0-98.0); Mean Platelet Volume 11.2 fL (7.4-10.4); Platelet Count 140 10x3/uL (130-400); RBC Distribution Width 14.6 % (11.5-14.5)
[2024-03-09 05:46] LABS: Anion Gap 14 mmol/L (10-20); BUN (Urea Nitrogen) 29 mg/dL (8.4-25.7); Calc. Creatinine Clearance 57 mL/min (70-130); Carbon Dioxide 26 mmol/L (23-31); Chloride 104 mmol/L (98-107); Estimated GFR 40; Glucose 171 mg/dL (83-110); Potassium 3.6 mmol/L (3.5-5.1); Sodium 140 mmol/L (136-145)
[2024-03-09] MEDS: Benzonatate 100 MG CAP PO PRN (20:50)
[2024-03-10 03:49] LABS: #Basophils Less than 0.03 10x3/uL (0.0-0.2); %Basophils 0.6 % (0.0-1.0); %Eosinophils 5.5 % (0.0-10.0); %Lymphocytes 18.6 % (21.0-51.0); %Monocytes 10.8 % (0.0-10.0); %Neutrophils 63.9 % (42.0-75.0); Hematocrit 33.5 % (42.0-52.0); Hemoglobin 10.6 g/dL (14.0-18.0); Mean Corpuscular HGB CONC 31.6 g/dL (32.0-36.0); Mean Corpuscular Volume 94.9 fL (78.0-98.0); Mean Platelet Volume 10.9 fL (7.4-10.4); Platelet Count 145 10x3/uL (130-400); RBC Distribution Width 14.5 % (11.5-14.5); Red Blood Cell (RBC) Count 3.53 mill/uL (4.70-6.10)
[2024-03-10 04:06] LABS: Anion Gap 11 mmol/L (10-20); BUN (Urea Nitrogen) 29 mg/dL (8.4-25.7); Calc. Creatinine Clearance 57 mL/min (70-130); Carbon Dioxide 26 mmol/L (23-31); Chloride 103 mmol/L (98-107); Estimated GFR 40; Glucose 167 mg/dL (83-110); Potassium 2.9 mmol/L (3.5-5.1); Sodium 137 mmol/L (136-145)
[2024-03-11 05:20] LABS: #Basophils 0.03 10x3/uL (0.0-0.2); %Basophils 0.6 % (0.0-1.0); %Eosinophils 6.6 % (0.0-10.0); %Lymphocytes 13.8 % (21.0-51.0); %Neutrophils 70.6 % (42.0-75.0); Hematocrit 35.1 % (42.0-52.0); Mean Corpuscular HGB CONC 31.3 g/dL (32.0-36.0); Mean Corpuscular Hemoglobin 29.8 pg (27.0-31.0); Mean Corpuscular Volume 95.1 fL (78.0-98.0); Mean Platelet Volume 10.7 fL (7.4-10.4); Platelet Count 174 10x3/uL (130-400); RBC Distribution Width 14.5 % (11.5-14.5); Red Blood Cell (RBC) Count 3.69 mill/uL (4.70-6.10)
[2024-03-11 06:06] LABS: Anion Gap 12 mmol/L (10-20); BUN (Urea Nitrogen) 27 mg/dL (8.4-25.7); Calc. Creatinine Clearance 58 mL/min (70-130); Calcium 8.2 mg/dL (7.8-10.44); Carbon Dioxide 26 mmol/L (23-31); Chloride 104 mmol/L (98-107); Estimated GFR 41; Glucose 179 mg/dL (83-110); Sodium 139 mmol/L (136-145)
[2024-03-11] MEDS: Dapagliflozin Propanediol 10 MG TAB PO SCH (09:33)
[2024-03-11 12:21] LABS: Clarity Clear (Clear); Glucose, Urine (Dipstick) >=1000 mg/dL (Negative); Leukocyte Negative Leu/uL (Negative); Nitrite Negative (Negative); Protein, Urine (Dipstick) 200 mg/dL (Neg-Trace); Specific Gravity, Urine 1.012 (1.002-1.036); pH, Urine 5.5 (5.0-9.0)
[2024-03-11 12:22] LABS: Bilirubin Negative (Negative); Blood, Urine 1+ (Negative); Ketone, Urine Negative (Negative); RBC/HPF 0-3 HPF (0-3); Squamous Epithelial 0-3 HPF (0-3); Urobilinogen Normal mg/dL (Less than 2); WBC/HPF 0-3 HPF (0-3)
[2024-03-11 13:01] VITALS: BP 136/74; TEMP 98.2
[2024-03-11] MEDS: Doxycycline 100 MG CAP PO SCH ×2 (14:45→14:51)
[2024-03-11] MEDS: Potassium Chloride 20 MEQ TAB PO SCH (14:48)
[2024-03-11] MEDS: Prasugrel 10 MG TAB PO SCH (14:49)
== END 2024-03-11 16:00 | disposition home or self-care (01) | DRG 291 ==
LOC: ERS 08:27 → 2NO 12:16 → OBSVTOIN 03-07 11:38
PROVIDERS: ADMIT Internal Medicine; ATTEND Internal Medicine
DX: I13.0 Hypertensive heart and chronic kidney disease with heart failure and stage 1 through stage 4 chronic kidney disease, or unspecified chronic kidney disease (principal); I50.23 Acute on chronic systolic (congestive) heart failure; N17.9 Acute kidney failure, unspecified; N18.4 Chronic kidney disease, stage 4 (severe); I24.89 Other forms of acute ischemic heart disease; J40 Bronchitis, not specified as acute or chronic; E78.5 Hyperlipidemia, unspecified; I25.2 Old myocardial infarction; N40.0 Benign prostatic hyperplasia without lower urinary tract symptoms; I25.10 Atherosclerotic heart disease of native coronary artery without angina pectoris; Z66 Do not resuscitate; E11.22 Type 2 diabetes mellitus with diabetic chronic kidney disease; F32.A Depression, unspecified; Z98.890 Other specified postprocedural states; Z79.82 Long term (current) use of aspirin; Z79.899 Other long term (current) drug therapy; Z79.01 Long term (current) use of anticoagulants; I25.5 Ischemic cardiomyopathy
CPT/HCPCS: 36415; 36416; 70450; 71045; 72125; 80048; 80053; 81003; 81015; 83605; 83735; 83880; 84484; 85025; 87040; 87400; 87426; 93005; 93798; J0360; J1815; J1940; J3490; J7620

== ENCOUNTER 2024-03-26 10:11 | Outpatient (CLI) | payer MEDICARE, OTHER ==
[2024-03-26 11:24] LABS: #Basophils 0.06 10x3/uL (0.0-0.2); %Basophils 0.8 % (0.0-1.0); %Eosinophils 3.8 % (0.0-10.0); %Lymphocytes 12.5 % (21.0-51.0); %Neutrophils 74.6 % (42.0-75.0); Hematocrit 37.2 % (42.0-52.0); Hemoglobin 11.5 g/dL (14.0-18.0); Mean Corpuscular HGB CONC 30.9 g/dL (32.0-36.0); Mean Corpuscular Hemoglobin 29.7 pg (27.0-31.0); Mean Corpuscular Volume 96.1 fL (78.0-98.0); Mean Platelet Volume 11.2 fL (7.4-10.4); Platelet Count 206 10x3/uL (130-400); RBC Distribution Width 15.4 % (11.5-14.5); Red Blood Cell (RBC) Count 3.87 mill/uL (4.70-6.10)
[2024-03-26 11:46] LABS: Anion Gap 14 mmol/L (10-20); BUN (Urea Nitrogen) 26 mg/dL (8.4-25.7); Calc. Creatinine Clearance 0 mL/min (70-130); Calcium 9.1 mg/dL (7.8-10.44); Carbon Dioxide 26 mmol/L (23-31); Chloride 108 mmol/L (98-107); Estimated GFR 33; Glucose 239 mg/dL (83-110); Potassium 3.9 mmol/L (3.5-5.1); Sodium 144 mmol/L (136-145)
[2024-03-26 11:51] LABS: INR-International Normal Ratio 1.4; PTT 34.6 sec (22.9-36.1); Prothrombin Time 17.4 sec (12.0-14.7)
[2024-03-26 17:54] LABS: Hemoglobin A1c 6.8 % (4.0-6.0)
[2024-03-26 17:57] LABS: Cardiac Risk 3.3 (Less than 4.5)
== END 2024-03-26 10:12 | disposition home or self-care (01) ==
LOC: LABBT 10:11
PROVIDERS: ATTEND Internal Medicine Cardiovascular Disease
DX: Z01.812 Encounter for preprocedural laboratory examination (principal); E78.5 Hyperlipidemia, unspecified; I50.22 Chronic systolic (congestive) heart failure
CPT/HCPCS: 80048; 80061; 83036; 85025; 85610; 85730

== ENCOUNTER 2024-10-07 07:31 | Day surgery (SDC) | payer MEDICARE, OTHER ==
[2024-10-06 09:41] VITALS: BMI 28.2
[2024-10-07] MEDS ORDERED: Etomidate 40 MG (20 mL) VIAL ONE (10:00)
[2024-10-07] MEDS ORDERED: Lidocaine 1% PF 5 ML VIAL ONE (10:34)
== END 2024-10-07 11:43 | disposition home or self-care (01) ==
LOC: SDC 07:31
PROVIDERS: ATTEND Internal Medicine Cardiovascular Disease
PROC: B24BZZ4 Ultrasonography of Heart with Aorta, Transesophageal (ICD-10-PCS; principal; 2024-10-07)
DX: I48.0 Paroxysmal atrial fibrillation (principal); E11.9 Type 2 diabetes mellitus without complications; Z95.818 Presence of other cardiac implants and grafts; Z98.84 Bariatric surgery status; Z88.5 Allergy status to narcotic agent; Z79.01 Long term (current) use of anticoagulants
CPT/HCPCS: 36416; 93312